=== PATIENT | male | born 1985 | race Caucasian/White ===

== ENCOUNTER 2016-11-14 07:28 | Day surgery (SDC) | payer BC ==
[2016-11-13 16:35] VITALS: BMI 26.8
[~2016-11-14] VITALS: Ht 172.7 cm; Wt 80.0 kg
[2016-11-14] VITALS (9 sets, daily range): BP systolic 119–168; BP diastolic 83–98; PULSE 60–85; RESP 13–22; Ht 172.7 cm; Wt 80.0 kg
[~2016-11-14 07:28] MED LIST: CEFAZOLIN 2 GM/50 ML (PMX) 50 ML IVPB SCH; SOD CHLORIDE 0.9% 1,000 ML IV SCH
[2016-11-14] MEDS ORDERED: BUPIVACAINE 0.25% (MPF) 30 ML INJ ONE (09:52)
[2016-11-14] MEDS ORDERED: MIDAZOLAM 1 MG/ML 2 ML INJ ONE (10:14)
[2016-11-14] MEDS ORDERED: ROPIVACAINE 0.2% 20 ML VIAL ONE (10:16)
[2016-11-14] MEDS ORDERED: CEFAZOLIN 1 GM INJ ONE (10:35)
[2016-11-14] MEDS ORDERED: DEXAMETHASONE 4 MG/ML 1 ML INJ ONE (10:37)
[2016-11-14] MEDS ORDERED: ONDANSETRON 4 MG INJ ONE (10:37)
[2016-11-14] MEDS ORDERED: FAMOTIDINE 20 MG INJ ONE (10:38)
[2016-11-14] MEDS ORDERED: HYDROmorphONE (0.2 MG/ML) 10ML SYG IV PRN ×2 (11:00)
[2016-11-14] MEDS ORDERED: METOCLOPRAMIDE 10 MG INJ IV PRN (11:00)
[2016-11-14] MEDS ORDERED: FENTAnyl 50 MCG/ML VIAL IV PRN ×2 (11:00)
[2016-11-14] MEDS ORDERED: ONDANSETRON 4 MG INJ IV PRN (11:00)
[2016-11-14] MEDS ORDERED: MEPERIDINE 25 MG INJ IV PRN (11:00)
[2016-11-14] MEDS ORDERED: LABETALOL HCL 20MG INJ ONE (11:00)
[2016-11-14] MEDS ORDERED: DIPHENHYDRAMINE 50 MG INJ IV PRN (11:00)
[2016-11-14] MEDS ORDERED: PROPOFOL 20 ML ONE (11:05)
[2016-11-14] MEDS ORDERED: ROCURONIUM 50 MG INJ ONE (11:05)
[2016-11-14] MEDS ORDERED: LIDOCAINE 2% (SDV) 5 ML INJ ONE (11:05)
[2016-11-14] MEDS ORDERED: SUGAMMADEX SODIUM 200 MG/2 ML VIAL IV ONE (11:09)
--- NOTE | 2016-11-14 11:20 | SIPON ---
Date/Time of Note Date/Time of Note DATE: 11/14/16 TIME: 11:19 Operative Report Preoperative Diagnosis symptomatic gallstones Postoperative Diagnosis same Operation/Procedure Performed 1. laparoscopic cholecystectomy 2. 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
[2016-11-14] MEDS ORDERED: HYDROCODONE/APAP (5/325) TAB PO ONE (11:30)
--- NOTE | 2016-11-14 11:54 | OPR ---
DATE OF OPERATION: 11/14/2016 INDICATION: The patient is a 31-year-old male with symptomatic gallstones. He requests surgical excision of his gallbladder. Risks, alternatives, benefits of procedure were discussed with the patient. Potential complications including, but not limited to bleeding, infection, bile duct injury, intra-abdominal organ injury, need for reoperation, and possible were discussed with the patient. He expressed understanding and consents to the operation. PREOPERATIVE DIAGNOSIS: Symptomatic gallstones. POSTOPERATIVE DIAGNOSIS: SSymptomatic gallstones. OPERATION PERFORMED: 1. Laparoscopic cholecystectomy. 2. Therapeutic injection of subcutaneous Marcaine. CPT CODE: 90368 SURGEON: Katerina Workman SPECIMEN: Gallbladder. COMPLICATIONS: None. ANESTHESIA: General. IMPLANTS: None. PROCEDURE: Patient taken to the operating room, prepped and draped in usual sterile fashion. Surgical time-out was performed. IV antibiotics were given. Infraumbilical transverse incision was made with a 15 blade. Dissection cautery was carried down to the fascia. The fascia was grasped with Nadiya's and divided with curved Phillips scissors, 0 Vicryl U stitch was placed into the fascia. A balloon Castellanos trocar was introduced and pneumoperitoneum is established. Mid epigastric 12 mm optical trocar was placed under direct visualization. Right upper quadrant upper flank 5 mm optical trocar was placed under direct visualization. Upon initial inspection, there was multiple adhesions to the gallbladder. These were taken down with cautery and with blunt dissection. The cystic duct was identified. The gallbladder was grasped in a lateral and outward direction. Lateral dissection is initiated with hook cautery to allow mobilization. Careful dissection of the cystic duct was performed. The critical view was established. The cystic duct was divided with 3 clips proximal and distally. There was thickened tissue and this was divided with 35 mm echelon vascular stapler. The cystic artery was also divided with 3 clips proximal and 1 clip distal. The gallbladder was taken off the gallbladder bed. There was good hemostasis. The gallbladder is retrieved using an EndoCatch bag. Minimal suction irrigation was used. Ports removed under direct visualization. 0 Vicryl U stitch of the infraumbilical port site is tied down. Skin was closed using skin huseyin. Therapeutic subcutaneous Marcaine is injected throughout the incision site. Dry dressings were applied. Dictated By: Seong Celia, Medical /fnt/ak /Document#: [id number]
== END 2016-11-14 13:13 | disposition home or self-care (01) ==
LOC: SDS 07:28
PROVIDERS: ATTEND Surgery
DX: K80.10 Calculus of gallbladder with chronic cholecystitis without obstruction (principal)
CPT/HCPCS: 47562; 88304; J0690; J1170; J2250; J2405; J2795; J3010; Z7512; Z7610; J1100